=== PATIENT | female | born 1950 | race Native Hawaiian/Other Pacific Islander ===

== ENCOUNTER 2017-02-23 13:58 | Outpatient (CLI) | payer BC ==
[~2017-02-23 13:58] MED LIST: CIPRO500 MG PO; TRAM50TA PO; Z-PAK PO
== END 2017-02-23 19:06 | disposition home or self-care (01) ==
LOC: MAMMO 13:58
DX: Z12.31 Encounter for screening mammogram for malignant neoplasm of breast (principal)
CPT/HCPCS: G0202-TC

== ENCOUNTER 2017-10-04 08:59 | Outpatient (CLI) | payer OTHER ==
[2017-10-04 10:05] LABS: PLATELET COUNT 294 K/uL (152-353)
[2017-10-04 10:19] LABS: POTASSIUM 3.9 mmol/L (3.6-5.2)
== END 2017-10-04 19:05 | disposition home or self-care (01) ==
LOC: LAB 08:59
PROVIDERS: Internal Medicine
DX: I10 Essential (primary) hypertension (principal); E78.00 Pure hypercholesterolemia, unspecified
CPT/HCPCS: 80053; 80061; 81000; 82306; 84439; 84443; 85027

== ENCOUNTER 2017-10-11 09:18 | Outpatient (CLI) | payer OTHER | END 2017-10-11 19:47 | disposition home or self-care (01) | LOC: US 09:18 | DX: Z13.6 Encounter for screening for cardiovascular disorders (principal); R10.84 Generalized abdominal pain ==

== ENCOUNTER 2018-01-26 11:17 | Outpatient (CLI) | payer OTHER | END 2018-01-26 20:30 | disposition home or self-care (01) | LOC: RAD 11:17 | DX: M81.0 Age-related osteoporosis without current pathological fracture (principal) ==

== ENCOUNTER 2018-03-15 08:00 | Outpatient (CLI) | payer OTHER | END 2018-03-15 22:13 | disposition home or self-care (01) | LOC: MAMMO 08:00 | DX: Z12.31 Encounter for screening mammogram for malignant neoplasm of breast (principal) ==

== ENCOUNTER 2018-07-17 10:16 | Outpatient (CLI) | payer OTHER | END 2018-07-17 22:22 | disposition home or self-care (01) | LOC: LABW 10:16 | DX: E55.9 Vitamin D deficiency, unspecified (principal) | CPT/HCPCS: 36415; 82306 ==

== ENCOUNTER 2018-12-06 08:48 | Outpatient (CLI) | payer OTHER ==
[2018-12-06 09:17] LABS: PLATELET COUNT 289 K/uL (152-353)
[2018-12-06 09:42] LABS: POTASSIUM 4.1 mmol/L (3.6-5.2)
== END 2018-12-06 23:43 | disposition home or self-care (01) ==
LOC: LABW 08:48
PROVIDERS: Internal Medicine
DX: I10 Essential (primary) hypertension (principal); M81.8 Other osteoporosis without current pathological fracture; E03.8 Other specified hypothyroidism
CPT/HCPCS: 36415; 80053; 80061; 81000; 82306; 84439; 84443; 85027

== ENCOUNTER 2019-01-01 14:20 | Inpatient (IN) | payer OTHER ==
[~2019-01-01] VITALS: Ht 154.9 cm; Wt 76.2 kg
[2019-01-01 15:00] VITALS: BP 155/60; TEMP 98.4
[2019-01-01 15:31] VITALS: BP 155/60; TEMP 98.4; Ht 154.9 cm; Wt 76.2 kg
[2019-01-01 15:31] LABS: PLATELET COUNT 315 K/uL (152-353)
[2019-01-01 15:43] LABS: POTASSIUM 3.3 mmol/L (3.6-5.2)
[2019-01-01] MEDS ORDERED: TIZA4TAB5 PO (15:58)
[2019-01-01] MEDS ORDERED: UNITH DIRECT50 MCG PO (15:58)
[2019-01-01] MEDS ORDERED: ALLEGRA ALRG180 M1 PO (15:59)
[2019-01-01] MEDS ORDERED: EZET10TA13 PO (15:59)
[2019-01-01 16:00] VITALS: BP 155/60; TEMP 98.4
[2019-01-01] MEDS ORDERED: GABA100C2 PO (16:00)
[2019-01-01] MEDS ORDERED: CELEXA10 MG PO (16:00)
[2019-01-01] MEDS ORDERED: HYDR200T3 PO (16:01)
[2019-01-01] MEDS ORDERED: IMITREX100 MG PO (16:01)
[2019-01-01 20:00] VITALS: BP 144/60; TEMP 98.1
[2019-01-02] VITALS: BP 169/84; TEMP 97.8
[2019-01-02 04:00] VITALS: BP 174/78; TEMP 98
[2019-01-02 08:00] VITALS: BP 145/72; TEMP 97.6
[2019-01-02 08:03] LABS: PLATELET COUNT 321 K/uL (152-353)
[2019-01-02 09:35] LABS: POTASSIUM 3.6 mmol/L (3.6-5.2)
[2019-01-02 12:00] VITALS: BP 131/63; TEMP 98.3
[2019-01-02 16:00] VITALS: BP 119/57; TEMP 98.4
[2019-01-02 20:00] VITALS: BP 143/69; TEMP 98.5
[2019-01-03] VITALS: BP 113/49; TEMP 98.1
[2019-01-03 04:00] VITALS: BP 111/51; TEMP 97.7
[2019-01-03 08:00] VITALS: BP 135/65; TEMP 97.6
[2019-01-03 08:29] LABS: PLATELET COUNT 295 K/uL (152-353)
[2019-01-03 08:35] LABS: POTASSIUM 3.7 mmol/L (3.6-5.2)
[2019-01-03 12:00] VITALS: BP 109/55; TEMP 97.6
[2019-01-03 16:00] VITALS: BP 124/68; TEMP 97.6
[2019-01-03 19:52] VITALS: BP 140/66; TEMP 98
[2019-01-04] VITALS (7 sets, daily range): BP systolic 105–151; BP diastolic 41–65; TEMP 97.4–98.5
[2019-01-05 04:00] VITALS: BP 112/39; TEMP 97.9
[2019-01-05 08:00] VITALS: BP 140/72; TEMP 97.6
== END 2019-01-05 09:30 | disposition home or self-care (01) | DRG 190 ==
LOC: MED/SURG 14:20
PROVIDERS: ADMIT Internal Medicine
DX: J44.0 Chronic obstructive pulmonary disease with (acute) lower respiratory infection (principal); J18.8 Other pneumonia, unspecified organism; J98.11 Atelectasis; M80.88XA Other osteoporosis with current pathological fracture, vertebra(e), initial encounter for fracture; J44.1 Chronic obstructive pulmonary disease with (acute) exacerbation; J32.8 Other chronic sinusitis; E87.6 Hypokalemia; D72.828 Other elevated white blood cell count; I10 Essential (primary) hypertension; E03.8 Other specified hypothyroidism
CPT/HCPCS: 80048; 80053; 80202; 85027; 85379; 87040; 87070; 87205; 87502; 87651; 93005; 94640; 94664; 94668; 94760; J1100; J1650; J1885; J1956; J2543; J2920; J2930; J3260; J3370; Q9963

== ENCOUNTER 2019-02-08 08:42 | Outpatient (CLI) | payer OTHER ==
[~2019-02-08] VITALS: Ht 152.4 cm; Wt 71.7 kg
[~2019-02-08 08:42] MED LIST changes: +ALLEGRA ALRG180 M1 PO; +CELEXA10 MG PO; +EZET10TA13 PO; +GABA100C2 PO; +HYDR200T3 PO; +IMITREX100 MG PO; +TIZA4TAB5 PO; +UNITH DIRECT50 MCG PO
[2019-02-08 09:05] VITALS: BP 136/56; TEMP 98.2
== END 2019-02-08 09:48 | disposition home or self-care (01) ==
LOC: INF 08:42
DX: M81.0 Age-related osteoporosis without current pathological fracture (principal)
CPT/HCPCS: 36415; 82310; 96372; J0897

== ENCOUNTER 2019-02-28 09:40 | Outpatient (CLI) | payer OTHER | END 2019-02-28 22:34 | disposition home or self-care (01) | LOC: US 09:40 | DX: R10.84 Generalized abdominal pain (principal); M54.5 Low back pain ==

== ENCOUNTER 2019-03-22 09:42 | Outpatient (CLI) | payer OTHER | END 2019-03-22 20:15 | disposition home or self-care (01) | LOC: MAMMO 09:42 | DX: Z12.31 Encounter for screening mammogram for malignant neoplasm of breast (principal) ==

== ENCOUNTER 2019-04-27 11:09 | Outpatient (CLI) | payer OTHER | END 2019-04-27 22:17 | disposition home or self-care (01) | LOC: LAB 11:09 | DX: S81.801D Unspecified open wound, right lower leg, subsequent encounter (principal) | CPT/HCPCS: 87070; 87077; 87185; 87186; 87205 ==

== ENCOUNTER 2019-06-18 08:51 | Outpatient (CLI) | payer OTHER ==
[2019-06-18 09:31] LABS: POTASSIUM 4.4 mmol/L (3.6-5.2)
[2019-06-18 10:05] LABS: PLATELET COUNT 314 K/uL (152-353)
== END 2019-06-18 20:21 | disposition home or self-care (01) ==
LOC: LABW 08:51
PROVIDERS: Internal Medicine
DX: Z00.00 Encounter for general adult medical examination without abnormal findings (principal); I10 Essential (primary) hypertension; E03.8 Other specified hypothyroidism; L65.8 Other specified nonscarring hair loss
CPT/HCPCS: 36415; 80053; 80061; 81000; 84439; 84443; 85027; 86038

== ENCOUNTER 2019-08-10 10:19 | Outpatient (CLI) | payer OTHER ==
[~2019-08-10] VITALS: Ht 154.9 cm; Wt 68.0 kg
[2019-08-10 10:27] VITALS: BP 135/59; TEMP 97.9
== END 2019-08-10 11:30 | disposition home or self-care (01) ==
LOC: INF 10:19
DX: M81.0 Age-related osteoporosis without current pathological fracture (principal)
CPT/HCPCS: 36415; 82310; 96372; J0897

== ENCOUNTER 2019-11-06 11:50 | Outpatient (CLI) | payer OTHER | END 2019-11-06 19:23 | disposition home or self-care (01) | LOC: RAD 11:50 | DX: M79.604 Pain in right leg (principal); M70.61 Trochanteric bursitis, right hip; M70.51 Other bursitis of knee, right knee ==

== ENCOUNTER 2019-11-27 13:46 | Outpatient (CLI) | payer OTHER | END 2019-11-27 19:11 | disposition home or self-care (01) | LOC: LAB 13:46 | DX: R82.81 Pyuria (principal) | CPT/HCPCS: 87088 ==

== ENCOUNTER 2020-04-24 13:00 | Outpatient (CLI) | payer OTHER ==
[2020-04-24 13:31] LABS: PLATELET COUNT 275 K/uL (152-353)
== END 2020-04-24 21:52 | disposition home or self-care (01) ==
LOC: LAB 13:00
PROVIDERS: Internal Medicine
DX: Z00.00 Encounter for general adult medical examination without abnormal findings (principal); I10 Essential (primary) hypertension; E03.8 Other specified hypothyroidism; Z13.820 Encounter for screening for osteoporosis; E55.9 Vitamin D deficiency, unspecified
CPT/HCPCS: 80053; 80061; 81000; 82306; 84439; 84443; 85027

== ENCOUNTER 2020-04-30 08:13 | Outpatient (CLI) | payer OTHER | END 2020-04-30 23:15 | disposition home or self-care (01) | LOC: MAMMO 08:13 | DX: Z12.31 Encounter for screening mammogram for malignant neoplasm of breast (principal) ==

== ENCOUNTER 2020-05-06 08:59 | Outpatient (CLI) | payer OTHER | END 2020-05-06 19:05 | disposition home or self-care (01) | LOC: RAD 08:59 | DX: Z12.39 Encounter for other screening for malignant neoplasm of breast (principal); Z78.0 Asymptomatic menopausal state ==

== ENCOUNTER 2020-08-12 08:11 | Outpatient (CLI) | payer OTHER ==
[~2020-08-12] VITALS: Ht 154.9 cm; Wt 68.5 kg
[2020-08-12 08:50] VITALS: BP 116/46; TEMP 98.4
== END 2020-08-12 09:30 | disposition home or self-care (01) ==
LOC: INF 08:11
PROVIDERS: ATTEND Internal Medicine
DX: M81.0 Age-related osteoporosis without current pathological fracture (principal)
CPT/HCPCS: 36415; 82310; 96372; J0897

== ENCOUNTER 2020-12-29 09:45 | Outpatient (CLI) | payer OTHER ==
[2020-12-29 10:05] LABS: PLATELET COUNT 278 K/uL (152-353)
[2020-12-29 10:30] LABS: POTASSIUM 4.7 mmol/L (3.6-5.2)
== END 2020-12-29 23:33 | disposition home or self-care (01) ==
LOC: LABW 09:45
PROVIDERS: ATTEND Internal Medicine
DX: M06.4 Inflammatory polyarthropathy (principal); E03.8 Other specified hypothyroidism
CPT/HCPCS: 36415; 80053; 81000; 84439; 84443; 85027; 85652; 86038; 86140; 86430

== ENCOUNTER 2021-02-18 08:22 | Outpatient (CLI) | payer OTHER | END 2021-02-18 09:45 | disposition home or self-care (01) | LOC: INF 08:22 | PROVIDERS: ATTEND Internal Medicine | DX: M81.0 Age-related osteoporosis without current pathological fracture (principal) | CPT/HCPCS: 36415; 82310; 96372 ==

== ENCOUNTER 2021-05-04 10:00 | Outpatient (CLI) | payer OTHER | END 2021-05-04 22:16 | disposition home or self-care (01) | LOC: MAMMO 10:00 | PROVIDERS: ATTEND Internal Medicine | DX: Z12.31 Encounter for screening mammogram for malignant neoplasm of breast (principal); M05.79 Rheumatoid arthritis with rheumatoid factor of multiple sites without organ or systems involvement ==

== ENCOUNTER 2021-08-26 08:07 | Outpatient (CLI) | payer OTHER ==
[~2021-08-26] VITALS: Ht 152.4 cm; Wt 48.5 kg
== END 2021-08-26 19:55 | disposition home or self-care (01) ==
LOC: INF 08:07
PROVIDERS: ATTEND Internal Medicine
DX: M81.0 Age-related osteoporosis without current pathological fracture (principal)
CPT/HCPCS: 36415; 82310; 96372; J0897

== ENCOUNTER 2021-12-09 11:40 | Outpatient (CLI) | payer OTHER | END 2021-12-09 19:18 | disposition home or self-care (01) | LOC: US 11:40 | PROVIDERS: ATTEND Internal Medicine | DX: M51.16 Intervertebral disc disorders with radiculopathy, lumbar region (principal); M79.605 Pain in left leg ==

== ENCOUNTER 2022-02-23 08:27 | Outpatient (CLI) | payer OTHER ==
[~2022-02-23] VITALS: Ht 152.4 cm; Wt 66.7 kg
[2022-02-23 08:44] VITALS: BP 112/46; TEMP 98.6
[2022-02-23 09:23] VITALS: BP 118/52; TEMP 98.2
== END 2022-02-23 18:50 | disposition home or self-care (01) ==
LOC: INF 08:27
PROVIDERS: ATTEND Internal Medicine
DX: M81.0 Age-related osteoporosis without current pathological fracture (principal)
CPT/HCPCS: 36415; 82310; 96372; J0897

== ENCOUNTER 2022-03-31 07:45 | Outpatient (CLI) | payer OTHER ==
[2022-03-31 08:11] LABS: PLATELET COUNT 265 K/uL (152-353)
== END 2022-03-31 19:20 | disposition home or self-care (01) ==
LOC: LABW 07:45
PROVIDERS: ATTEND Internal Medicine
DX: I10 Essential (primary) hypertension (principal); E03.8 Other specified hypothyroidism
CPT/HCPCS: 36415; 80053; 80061; 81002; 84439; 84443; 85027

== ENCOUNTER 2022-05-06 09:54 | Outpatient (CLI) | payer OTHER | END 2022-05-06 20:51 | disposition home or self-care (01) | LOC: MAMMO 09:54 | PROVIDERS: ATTEND Internal Medicine | DX: Z12.31 Encounter for screening mammogram for malignant neoplasm of breast (principal) ==

== ENCOUNTER 2022-05-13 14:59 | Outpatient (CLI) | payer OTHER | END 2022-05-13 19:27 | disposition home or self-care (01) | LOC: RAD 14:59 | PROVIDERS: ATTEND Internal Medicine | DX: S22.000S Wedge compression fracture of unspecified thoracic vertebra, sequela (principal); Y92.89 Other specified places as the place of occurrence of the external cause ==

== ENCOUNTER 2022-05-14 07:42 | Outpatient (CLI) | payer OTHER | END 2022-05-14 21:27 | disposition home or self-care (01) | LOC: CT 07:42 | PROVIDERS: ATTEND Internal Medicine | DX: R10.12 Left upper quadrant pain (principal) | CPT/HCPCS: 82565; 84520; Q9963 ==

== ENCOUNTER 2022-05-24 13:52 | Outpatient (CLI) | payer OTHER | END 2022-05-24 19:31 | disposition home or self-care (01) | LOC: RAD 13:52 | PROVIDERS: ATTEND Internal Medicine | DX: M54.2 Cervicalgia (principal) ==

== ENCOUNTER 2022-08-31 08:44 | Outpatient (CLI) | payer OTHER ==
[~2022-08-31] VITALS: Ht 152.4 cm; Wt 64.4 kg
[2022-08-31 09:08] VITALS: BP 120/53; TEMP 98.3
== END 2022-08-31 20:32 | disposition home or self-care (01) ==
LOC: INF 08:44
PROVIDERS: ATTEND Internal Medicine
DX: M81.0 Age-related osteoporosis without current pathological fracture (principal)
CPT/HCPCS: 36415; 82310; 96372; J0897

== ENCOUNTER 2022-12-13 16:54 | Outpatient (CLI) | payer OTHER | END 2022-12-13 19:02 | disposition home or self-care (01) | LOC: LAB 16:54 | PROVIDERS: ATTEND Internal Medicine | DX: R30.0 Dysuria (principal) | CPT/HCPCS: 81002; 87086; 87088 ==

== ENCOUNTER 2023-04-06 12:37 | Outpatient (CLI) | payer OTHER ==
[~2023-04-06] VITALS: Ht 154.9 cm; Wt 65.8 kg
[2023-04-06 12:46] VITALS: BP 113/55; TEMP 98.4
== END 2023-04-06 18:59 | disposition home or self-care (01) ==
LOC: INF 12:37
PROVIDERS: ATTEND Internal Medicine Endocrinology, Diabetes & Metabolism
DX: M81.0 Age-related osteoporosis without current pathological fracture (principal)
CPT/HCPCS: 36415; 82310; 96372; J0897

== ENCOUNTER 2023-04-11 12:37 | Outpatient (CLI) | payer OTHER | END 2023-04-11 20:25 | disposition home or self-care (01) | LOC: LAB 12:37 | PROVIDERS: ATTEND Internal Medicine | DX: N39.0 Urinary tract infection, site not specified (principal) | CPT/HCPCS: 87088 ==